=== PATIENT | male | born 1950 | race Caucasian/White ===

== ENCOUNTER → 2023-08-09 08:06 | Outpatient (REF) | payer MEDICARE, OTHER, SELFPAY | LOC: DHCBS MAIN 08:06 | PROVIDERS: ATTENDING PHYSICIAN Nuclear Medicine Nuclear Cardiology; FAMILY PHYSICIAN Family Medicine | DX: I48.0 Paroxysmal atrial fibrillation (principal) | CPT/HCPCS: 93306 ==

== ENCOUNTER → 2024-09-03 07:59 | Outpatient (REF) | payer MEDICARE, OTHER, SELFPAY | LOC: RCS 07:59 | PROVIDERS: ATTENDING PHYSICIAN Nuclear Medicine Nuclear Cardiology; FAMILY PHYSICIAN Family Medicine | DX: I48.0 Paroxysmal atrial fibrillation (principal); I34.0 Nonrheumatic mitral (valve) insufficiency | CPT/HCPCS: 93306 ==

== ENCOUNTER 2025-04-30 06:18 | Day surgery (SDC) | payer MEDICARE, OTHER, SELFPAY | END 2025-04-30 09:39 | disposition home or self-care (01) | LOC: GI 06:18 | PROVIDERS: ATTENDING PHYSICIAN Internal Medicine Gastroenterology | DX: K29.70 Gastritis, unspecified, without bleeding (principal); K31.A0 Gastric intestinal metaplasia, unspecified; K44.9 Diaphragmatic hernia without obstruction or gangrene; K31.89 Other diseases of stomach and duodenum; K31.7 Polyp of stomach and duodenum; R12 Heartburn; Z79.01 Long term (current) use of anticoagulants | CPT/HCPCS: 43239; 88305; 88342 ==